=== PATIENT | female | born 1995 | race Caucasian/White ===

== ENCOUNTER 2017-03-02 23:32 | Emergency (ER) | payer BC ==
[~2017-03-02] VITALS: Ht 170.2 cm; Wt 65.8 kg
[2017-03-02] MEDS ORDERED: IBUP200C PO (23:40)
[2017-03-02] MEDS ORDERED: birth control PO (23:40)
[2017-03-03] MEDS ORDERED: MORPHINE 2 MG/ML 1ML SYRINGE IV ONE (01:45)
[2017-03-03] MEDS ORDERED: NS 1,000 ML IV ONE (02:30)
[2017-03-03 04:04] VITALS: BP 97/50
== END 2017-03-03 04:12 | disposition home or self-care (01) ==
LOC: M ED 03-03 01:28
DX: L55.0 Sunburn of first degree (principal)

== ENCOUNTER → 2017-09-09 | Outpatient (REF) | payer BC ==
[~2017-09-09] MED LIST: IBUP200C10 PO; birth control PO
== END ==
LOC: M SFHCWAGY 12:17
PROVIDERS: ATTEND Nurse Practitioner Women's Health
DX: Z12.4 Encounter for screening for malignant neoplasm of cervix (principal)